=== PATIENT | male | born 1955 | race Two or more races ===

== ENCOUNTER 2019-10-07 08:51 | Outpatient (CLI) | payer OTHER | END 2019-10-07 08:57 | disposition home or self-care (01) | LOC: LAB 08:51 | PROVIDERS: ATTEND Surgery | DX: K60.3 Anal fistula (principal); K62.89 Other specified diseases of anus and rectum; K64.4 Residual hemorrhoidal skin tags; K64.1 Second degree hemorrhoids; K62.5 Hemorrhage of anus and rectum; I10 Essential (primary) hypertension ==

== ENCOUNTER 2019-10-11 12:31 | Outpatient (CLI) | payer OTHER ==
[2019-10-11] MEDS ORDERED: METFORMIN PO (14:13)
[2019-10-11] MEDS ORDERED: ATORVASTA PO (14:14)
[2019-10-11] MEDS ORDERED: [UNRECOGNIZED DRUG - OTHER] PO (14:14)
== END 2019-10-11 12:37 | disposition home or self-care (01) ==
LOC: LAB 12:31
PROVIDERS: ATTEND Surgery
DX: Z20.828 Contact with and (suspected) exposure to other viral communicable diseases (principal); K60.3 Anal fistula; K62.89 Other specified diseases of anus and rectum; K64.4 Residual hemorrhoidal skin tags; K64.1 Second degree hemorrhoids; K62.5 Hemorrhage of anus and rectum; Z03.818 Encounter for observation for suspected exposure to other biological agents ruled out

== ENCOUNTER 2019-10-14 06:10 | Day surgery (SDC) | payer OTHER ==
[~2019-10-14 06:10] MED LIST: ATORVASTA PO; METFORMIN PO; [UNRECOGNIZED DRUG - OTHER] PO
[2019-10-14] MEDS ORDERED: COLACE100 MG PO (11:14)
[2019-10-14] MEDS ORDERED: PERCOCET 5-3251 EACH PO (11:14)
== END 2019-10-14 13:50 | disposition home or self-care (01) ==
LOC: CIR.AMB 06:10
PROVIDERS: ATTEND Surgery
DX: K60.3 Anal fistula (principal); K64.4 Residual hemorrhoidal skin tags